=== PATIENT | male | born 1980 | race Caucasian/White ===

== ENCOUNTER 2020-02-19 16:33 | Inpatient (IN) ==
[2020-02-19 18:01] LABS: Basophils # 0.1 K/mcL (0.0-0.2); Basophils % 0.6 %; Eosinophils # 0.1 K/mcL (0.0-0.6); Eosinophils % 0.4 %; Hemoglobin 15.1 g/dL (12.9-16.9); Immature Granulocytes % 0.5 % (0-4); Lymphocytes # 2.5 K/mcL (0.6-4.6); Lymphocytes % 17.2 %; Mean Corpuscular HGB Conc 33.6 g/dL (31.6-35.5); Mean Corpuscular Hemoglobin 29.4 pg (28.0-33.3); Mean Corpuscular Volume 87.7 fL (83.0-100.0); Mean Platelet Volume 9.5 fL (9.4-12.4); Monocytes # 0.7 K/mcL (0.0-1.3); Neutrophils # 10.9 K/mcL (1.6-8.9); Platelet Count 276 K/mcL (140-400); Red Blood Count 5.13 M/mcL (4.19-5.50); Red Cell Distribution Width 13.5 % (11.5-14.5); Segmented Neutrophils % 76.3 %; White Blood Count 14.2 K/mcL (4.3-11.1)
[2020-02-19 18:03] LABS: Amphetamine Screen,Urine Negative ng/mL (Cutoff=1000); Barbiturate Screen,Urine Negative ng/mL (Cutoff=200); Benzodiazepines Screen,Urine Negative ng/mL (Cutoff=200); Cannabinoid Screen,Urine Negative ng/mL (Cutoff = 50); Cocaine Screen,Urine Negative ng/mL (Cutoff= 300); Opiate Screen,Urine Negative ng/mL (Cutoff=300); Phencyclidine Screen,Urine Negative ng/mL (Cutoff=25)
[2020-02-19 18:05] LABS: Bacteria,Urine Few per hpf (None-Few); Bilirubin,Urine Negative (Negative); Blood,Urine Moderate (Negative); Clarity,Urine Clear (Clear); Color,Urine Yellow (Yellow); Glucose,Urine (UA) Normal (Normal); Ketones,Urine Negative (Negative); Leukocyte Esterase,Urine Negative (Negative); Mucus,Urine Few per lpf (None-Few); Nitrite,Urine Negative (Negative); Protein,Urine Negative (Neg-Trace); RBC,Urine 0-3 per hpf (0-3); Specific Gravity,Urine 1.018 (1.010-1.025); Squamous Epithelial Cell,Urine Few per hpf (None-Few); Urobilinogen,Urine Normal (Normal); WBC,Urine 0-3 per hpf (0-3)
[2020-02-19 18:11] LABS: Acetaminophen < 10 mcg/mL (10-20); Alanine Aminotransferase 12 Units/L (7-52); Albumin 4.1 g/dL (3.5-5.7); Albumin/Globulin Ratio 1.9 (1.1-2.2); Alkaline Phosphatase 70 Units/L (34-104); Aspartate Amino Transferase 13 Units/L (13-39); BUN/Creatinine Ratio 16 (6-26); Bilirubin,Direct 0.1 mg/dL (0.0-0.2); Bilirubin,Indirect 0.6 mg/dL (0.0-1.0); Bilirubin,Total 0.7 mg/dL (0.3-1.0); Blood Urea Nitrogen 13 mg/dL (6-20); Carbon Dioxide 25 mEq/L (23-29); Chloride 106 mEq/L (98-107); Ethanol < 10 mg/dL (Less than 10); Globulin 2.2 g/dL (2.4-3.5); Glucose 108 mg/dL (70-105); Osmolality,Calculated 287 (280-300); Potassium 3.5 mEq/L (3.5-5.1); Salicylate < 2.5 mg/dL (15.0-30.0); Sodium 138 mEq/L (136-145); Total Protein 6.3 g/dL (6.4-8.9); eGFR For African Americans > 60 (> 60); eGFR For Non-African Americans > 60 (> 60)
[2020-02-19 18:22] LABS: Thyroid Stimulating Hormone 0.432 mcIU/mL (0.340-5.600)
[2020-02-19] MEDS ORDERED: MOM Conc 10 ML UD.LIQ PO PRN (20:13)
[2020-02-19] MEDS ORDERED: *HR* LORazepam 1 MG TABLET PO PRN (20:13)
[2020-02-19] MEDS ORDERED: *HR* LORazepam 2 MG/ML VIAL IM PRN (20:13)
[2020-02-19] MEDS ORDERED: Haloperidol Lactate 5 MG/ML VIAL IM PRN (20:13)
[2020-02-19] MEDS ORDERED: Mag Hydrox/Al Hydrox/Simeth 30 ML UDC PO PRN (20:13)
[2020-02-19] MEDS ORDERED: haloperidoL 5 MG TABLET PO PRN (20:13)
[2020-02-19] MEDS ORDERED: Acetaminophen 325 MG TABLET PO PRN (20:42)
[2020-02-19] MEDS: traZODone 50 MG TABLET PO PRN (21:57)
[2020-02-19] MEDS: hydrOXYzine pamoate 25 MG CAPSULE PO PRN (23:17)
[2020-02-20] MEDS: hydrOXYzine pamoate 25 MG CAPSULE PO PRN ×3 (10:04→22:43)
[2020-02-20] MEDS: traZODone 50 MG TABLET PO PRN (20:07)
[2020-02-20] MEDS ORDERED: risperiDONE 1 MG TABLET PO SCH (21:00)
[2020-02-20] MEDS: Nicotine 2 MG GUM BC PRN (23:03)
[2020-02-21] MEDS: hydrOXYzine pamoate 25 MG CAPSULE PO PRN ×3 (08:39→20:54)
[2020-02-21] MEDS ORDERED: traZODone 50 MG TABLET PO PRN (10:10)
[2020-02-21] MEDS: Nicotine 2 MG GUM BC PRN (10:58)
[2020-02-21 19:35] VITALS: BP 111/69
[2020-02-21] MEDS ORDERED: risperiDONE 1 MG TABLET PO SCH (21:00)
[2020-02-22] MEDS: hydrOXYzine pamoate 25 MG CAPSULE PO PRN (09:07)
[2020-02-22] MEDS ORDERED: Folic Acid 1 MG TABLET PO SCH (09:15)
[2020-02-22] MEDS ORDERED: Thiamine (B-1) 100 MG TABLET PO SCH (09:15)
== END 2020-02-22 10:35 | disposition home or self-care (01) | DRG 754 ==
LOC: EMEROOARM 16:33 → 1ANU 20:10
PROVIDERS: ADMIT Psychiatry & Neurology Psychiatry; ATTEND Psychiatry & Neurology Psychiatry